=== PATIENT | male | born 1965 | race Caucasian/White ===

== ENCOUNTER 2023-05-03 05:11 | Inpatient (IN) | payer MEDICARE, MEDICAID ==
[~2023-05-03] VITALS: Ht 152.4 cm; Wt 100.0 kg
[2023-05-03] VITALS (20 sets, daily range): BP systolic 120–166; BP diastolic 70–90; PULSE 71–84; RESP 19–20; TEMP 97.9–98.5
[~2023-05-03 05:11] MED LIST: AMMO140C4 TP; ASPI-1444 PO; ASPIRIN 81 MG CHEWABLE TABLET PO ONE; CHOL500013 PO; CLOP75TA60 PO; DIAZEPAM 5 MG TABLET PO ONE; DiphenhydrAMINE HCL 50 MG CAPSULE PO ONE; EMPA10TA3 PO; FENO67CA16 PO; GABA-1181 PO; INSU100I26 SQ; INSU100I34 SQ; LINA5TAB PO; LISI10TA24 PO; OMEP20 PO; RIVA2.5T3 PO; ROSU20TA73 PO; SODIUM CHLORIDE 0.9% 1,000 ML IV ONE; TAMS0.4C94 PO
[2023-05-03] MEDS ORDERED: SODIUM CHLORIDE 0.9% 1,000 ML ONE (06:00)
[2023-05-03] MEDS ORDERED: IOHEXOL 300 MG/ML 100 ML VIAL ONE (06:35)
[2023-05-03] MEDS ORDERED: LIDOCAINE/PF 1% 30 ML VIAL ONE (06:35)
[2023-05-03] MEDS ORDERED: SODIUM BICARBONATE 50 MEQ/50 ML VIAL ONE (06:35)
[2023-05-03] MEDS ORDERED: HEPARIN SODIUM 1000 UNITS/NS 1,000 ML ONE (06:35)
[2023-05-03 06:37] LABS: BASOPHILS % (AUTO) 0.8 % (0.0-2.0); EOSINOPHILS % (AUTO) 5.3 % (1.0-6.0); HEMATOCRIT 38.4 % (41-53); HEMOGLOBIN 13.2 g/dL (13.5-17.5); LYMPHOCYTES # (AUTO) 2.3 K/uL (1.0-4.8); LYMPHOCYTES % (AUTO) 28.1 % (22.0-44.0); MEAN CORPUSCULAR HEMOGLOBIN 29.9 pg (26.0-34.0); MEAN CORPUSCULAR HGB CONC 34.3 G/dL (31.0-37.0); MEAN CORPUSCULAR VOLUME 87 fL (80-100); MONOCYTES # (AUTO) 0.7 K/uL (0.1-1.0); MONOCYTES % (AUTO) 9.1 % (2.0-9.0); NEUTROPHILS # (AUTO) 4.6 K/uL (1.8-7.7); NEUTROPHILS % (AUTO) 56.7 % (40.0-70.0); PLATELET COUNT (AUTO) 218 K/uL (150-450); WHITE BLOOD COUNT (AUTO) 8.1 K/uL (4.5-11.0)
[2023-05-03 06:53] LABS: ANION GAP 6 mmol/L (8-16); CALCIUM, TOTAL 9.4 mg/dL (8.8-10.5); CARBON DIOXIDE 30 mmol/L (22-29); CHLORIDE 97 mmol/L (98-107); CREATININE 1.03 mg/dL (0.60-1.30); GLOMERULAR FILTR. RATE CALC > 60 mL/min (>60); GLUCOSE,RANDOM 321 mg/dL (70-110); POTASSIUM 4.7 mmol/L (3.5-5.1); SODIUM SERUM 133 mmol/L (136-145); UREA NITROGEN, BLOOD 27 mg/dL (7-18)
[2023-05-03 06:55] LABS: ALANINE AMINOTRANSFERASE 62 U/L (12-78); ALBUMIN 3.8 g/dL (3.4-5.0); ALKALINE PHOSPHATASE 111 U/L (46-116); ASPARTATE AMINOTRANSFERASE 26 U/L (15-37); BILIRUBIN,TOTAL 0.4 mg/dL (0.1-1.0); TOTAL PROTEIN, SERUM 7.6 g/dL (6.4-8.2)
[2023-05-03] MEDS ORDERED: DIAZEPAM 5 MG TABLET ONE (06:56)
[2023-05-03] MEDS ORDERED: ASPIRIN 81 MG CHEWABLE TABLET ONE (06:56)
[2023-05-03] MEDS ORDERED: DiphenhydrAMINE HCL 50 MG CAPSULE ONE (06:57)
[2023-05-03 06:59] LABS: PROTHROMBIN TIME 10.4 SEC (9.4-11.6)
[2023-05-03 07:26] LABS: GLUCOMETER DEV NAME(LOC) SDS.; GLUCOSE,POINT OF CARE 328 MG/DL (70-110)
[2023-05-03] MEDS ORDERED: FentaNYL CITRATE PF 100 MCG/2 ML VIAL IVP ONE (07:30)
[2023-05-03] MEDS ORDERED: ASPIRIN 81 MG CHEWABLE TABLET PO ONE (07:30)
[2023-05-03] MEDS ORDERED: MIDAZOLAM HCL 2 MG/2 ML VIAL IVP ONE (07:30)
[2023-05-03] MEDS ORDERED: DiphenhydrAMINE HCL 50 MG CAPSULE PO ONE (07:30)
[2023-05-03] MEDS ORDERED: HEPARIN SODIUM 2,000 UNITS in HEPARIN SODIUM 1000 UNITS/NS 1,000 ML IARTER ONE (07:30)
[2023-05-03] MEDS ORDERED: LIDOCAINE 1% 30 ML/SOD BICARB 8.4% 4 ML SQ ONE (07:30)
[2023-05-03] MEDS ORDERED: IOHEXOL 300 MG/ML 100 ML VIAL ICOR ONE (07:30)
[2023-05-03] MEDS ORDERED: DIAZEPAM 5 MG TABLET PO ONE (07:30)
[2023-05-03] MEDS ORDERED: SODIUM CHLORIDE 0.9% 1,000 ML IV ONE (07:30)
[2023-05-03] MEDS ORDERED: 0.9% SODIUM CHLORIDE 10 ML SYRINGE IVP ONE (07:36)
[2023-05-03] MEDS ORDERED: IOHEXOL 300 MG/ML 50 ML VIAL ONE (08:12)
[2023-05-03] MEDS ORDERED: HEPARIN SODIUM,PORCINE 1,000 UNITS/ML 10 ML VIAL IVP ONE (08:15)
[2023-05-03] MEDS ORDERED: TICAGRELOR 90 MG TABLET PO ONE (08:30)
[2023-05-03] MEDS ORDERED: ASPIRIN 325 MG TABLET PO ONE (08:30)
[2023-05-03] MEDS ORDERED: IOHEXOL 300 MG/ML 50 ML VIAL ICOR ONE (09:00)
[2023-05-03] MEDS ORDERED: ONDANSETRON HCL 4 MG/2 ML VIAL IVP PRN (11:30)
[2023-05-03] MEDS ORDERED: OxyCODONE HCL/ACETAMINOPHEN 5-325 MG TABLET PO PRN (11:30)
[2023-05-03] MEDS ORDERED: DEXTROSE 50%-WATER 25 GM/50 ML SYRINGE IVP PRN (11:30)
[2023-05-03] MEDS ORDERED: ACETAMINOPHEN 325 MG TABLET PO PRN (11:30)
[2023-05-03 13:11] LABS: GLUCOMETER DEV NAME(LOC) SDS.; GLUCOSE,POINT OF CARE 253 MG/DL (70-110)
[2023-05-03] MEDS: HEPARIN SODIUM,PORCINE 5,000 UNITS/ML VIAL SQ SCH (16:26)
[2023-05-03] MEDS: INSULIN LISPRO 100 UNITS/ML SQ PRN (17:37)
[2023-05-03] MEDS: FAMOTIDINE 20 MG TABLET PO SCH (22:02)
[2023-05-03] MEDS: DOCUSATE SODIUM 100 MG CAPSULE PO SCH (22:02)
[2023-05-03] MEDS: CARVEDILOL 6.25 MG TABLET PO SCH (22:02)
[2023-05-03 23:50] LABS: GLUCOMETER DEV NAME(LOC) 5N.1C; GLUCOSE,POINT OF CARE 285 MG/DL (70-110)
[2023-05-04 00:23] VITALS: BP 124/79; PULSE 78; RESP 17; TEMP 97.6
[2023-05-04 03:47] VITALS: BP 148/89; PULSE 74; RESP 18; TEMP 97.4
[2023-05-04] MEDS: INSULIN LISPRO 100 UNITS/ML SQ PRN ×2 (06:29→12:11)
[2023-05-04 07:23] LABS: ANION GAP 9 mmol/L (8-16); CARBON DIOXIDE 28 mmol/L (22-29); CHLORIDE 99 mmol/L (98-107); CREATININE 0.95 mg/dL (0.60-1.30); GLOMERULAR FILTR. RATE CALC > 60 mL/min (>60); GLUCOSE,RANDOM 258 mg/dL (70-110); POTASSIUM 4.5 mmol/L (3.5-5.1); SODIUM SERUM 136 mmol/L (136-145); UREA NITROGEN, BLOOD 20 mg/dL (7-18)
[2023-05-04 07:56] LABS: GLUCOMETER DEV NAME(LOC) 5N.1C; GLUCOSE,POINT OF CARE 226 MG/DL (70-110)
[2023-05-04 08:00] VITALS: BP 131/82; PULSE 80; RESP 18; TEMP 98.2
[2023-05-04] MEDS: HEPARIN SODIUM,PORCINE 5,000 UNITS/ML VIAL SQ SCH ×2 (08:00)
[2023-05-04] MEDS ORDERED: TICAGRELOR 90 MG TABLET PO SCH (09:00)
[2023-05-04] MEDS ORDERED: ATORVASTATIN CALCIUM 40 MG TABLET PO SCH (09:00)
[2023-05-04] MEDS ORDERED: ASPIRIN 81 MG CHEWABLE TABLET PO SCH (09:00)
[2023-05-04] MEDS: CARVEDILOL 6.25 MG TABLET PO SCH (09:19)
[2023-05-04] MEDS: DOCUSATE SODIUM 100 MG CAPSULE PO SCH (09:20)
[2023-05-04] MEDS: FAMOTIDINE 20 MG TABLET PO SCH (09:20)
[2023-05-04 12:00] VITALS: BP 135/79; PULSE 79; RESP 18; TEMP 98.3
[2023-05-04 12:41] LABS: GLUCOMETER DEV NAME(LOC) 5N.2C; GLUCOSE,POINT OF CARE 290 MG/DL (70-110)
== END 2023-05-04 13:40 | disposition home or self-care (01) | DRG 322 ==
LOC: CATHLAB 05:11 → 5S 05:12
PROVIDERS: ADMIT Internal Medicine; ATTEND Internal Medicine
PROC: 027035Z Dilation of Coronary Artery, One Artery with Two Drug-eluting Intraluminal Devices, Percutaneous Approach (ICD-10-PCS; principal; 2023-05-03)
PROC: 4A023N7 Measurement of Cardiac Sampling and Pressure, Left Heart, Percutaneous Approach (ICD-10-PCS; 2023-05-03)
PROC: B2111ZZ Fluoroscopy of Multiple Coronary Arteries using Low Osmolar Contrast (ICD-10-PCS; 2023-05-03)
PROC: B41F1ZZ Fluoroscopy of Right Lower Extremity Arteries using Low Osmolar Contrast (ICD-10-PCS; 2023-05-03)
DX: I25.10 Atherosclerotic heart disease of native coronary artery without angina pectoris (principal); Z68.41 Body mass index [BMI] 40.0-44.9, adult; I10 Essential (primary) hypertension; E11.51 Type 2 diabetes mellitus with diabetic peripheral angiopathy without gangrene; E66.01 Morbid (severe) obesity due to excess calories; E11.65 Type 2 diabetes mellitus with hyperglycemia; E78.5 Hyperlipidemia, unspecified; Z79.4 Long term (current) use of insulin; Z79.82 Long term (current) use of aspirin; Z79.899 Other long term (current) drug therapy; Z79.01 Long term (current) use of anticoagulants; Z83.3 Family history of diabetes mellitus; Z82.49 Family history of ischemic heart disease and other diseases of the circulatory system
CPT/HCPCS: 80048; 80053; 82962; 85025; 85610; 85730; 93005; G0378; J1644; J2250; J3010; J3490; J7030; Q9967